=== PATIENT | female | born 1995 | race Caucasian/White ===

== ENCOUNTER → 2020-06-03 | Outpatient (CLI) | payer BC | LOC: ZCOL.LAB 21:44 | DX: Z20.828 Contact with and (suspected) exposure to other viral communicable diseases (principal) ==

== ENCOUNTER → 2023-08-28 | Outpatient (CLI) | payer BC | LOC: COL.RAD 15:04 | DX: N93.0 Postcoital and contact bleeding (principal); R10.2 Pelvic and perineal pain; Z97.5 Presence of (intrauterine) contraceptive device ==